=== PATIENT | female | born 1995 | race Caucasian/White ===

== ENCOUNTER 2021-07-24 17:34 | Emergency (ER) | payer MEDICAID ==
[~2021-07-24] VITALS: Ht 165.1 cm; Wt 47.2 kg
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
[2021-07-24] MEDS ORDERED: ONDANSETRON HCL/PF - ER 4 MG/2 ML VIAL IM ONE (18:30)
[2021-07-24] MEDS ORDERED: METOCLOPRAMIDE HCL 10 MG/2 ML VIAL IV ONE (18:30)
[2021-07-24] MEDS ORDERED: diphenhydrAMINE HCL 50 MG/ML VIAL IV ONE (18:30)
[2021-07-24] MEDS ORDERED: diphenhydrAMINE HCL 50 MG/ML VIAL ONE (18:45)
[2021-07-24] MEDS ORDERED: ACETAMINOPHEN 325 MG TABLET ONE (18:46)
[2021-07-24] MEDS ORDERED: METOCLOPRAMIDE HCL 10 MG/2 ML VIAL ONE (18:46)
[2021-07-24] MEDS ORDERED: ACETAMINOPHEN 325 MG TABLET PO ONE (19:00)
[2021-07-24] MEDS ORDERED: NAPR-1009 PO (20:14)
[2021-07-24] MEDS ORDERED: KETOROLAC TROMETHAMINE INJ 60 MG/2 ML VIAL IM ONE ×2 (20:22→20:30)
[2021-07-24 21:30] VITALS: BP 130/88
--- NOTE | 2021-07-24 21:30 | NUR ---
Patient discharged to home in stable condition. Written and verbal after care instructions given. Patient verbalizes understanding of instruction.
== END 2021-07-24 21:31 | disposition home or self-care (01) ==
LOC: ER 17:37
DX: S13.4XXD Sprain of ligaments of cervical spine, subsequent encounter (principal); S29.012D Strain of muscle and tendon of back wall of thorax, subsequent encounter; S06.0X0D Concussion without loss of consciousness, subsequent encounter; Z79.1 Long term (current) use of non-steroidal anti-inflammatories (NSAID); V49.9XXD Car occupant (driver) (passenger) injured in unspecified traffic accident, subsequent encounter
CPT/HCPCS: 70450; 72125; 96372; 96374; 96375; 99284; J1200; J1885; J2765; J2405